=== PATIENT | male | born 1985 | race Caucasian/White ===

== ENCOUNTER → 2017-01-25 | Outpatient (REF) | payer BC ==
[2017-01-25 20:16] LABS: BASO % 0.5 % (0.0-1.0); EOS # 0.1 10^3/uL (0.0-0.50); EOS % 0.9 % (0.0-3.0); IMMATURE GRANULOCYTE % 0.4 % (0-0); LYMPH # 1.2 10^3/uL (1.5-6.5); LYMPH % 21.2 % (24.0-44.0); MEAN CORPUSCULAR HEMOGLOBIN 28.4 pg (27.0-33.0); MEAN CORPUSCULAR HGB CONC 33.9 g/dl (32.0-36.5); MEAN CORPUSCULAR VOLUME 83.7 fl (80.0-96.0); MONO # 0.4 10^3/uL (0.0-0.8); MONO % 8.1 % (0.0-5.0); NEUTROPHILS # 3.8 10^3/uL (1.8-7.7); NEUTROPHILS % 68.9 % (36.0-66.0); PLATELET COUNT, AUTOMATED 189 10^3/uL (150-450); RED CELL DISTRIBUTION WIDTH 12.8 % (11.5-14.5); WHITE BLOOD COUNT 5.5 10^3/uL (4.0-10.0)
[2017-01-25 21:00] LABS: ADD MORPHOLOGY? NO
== END ==
LOC: M LABNEURO 11:54
PROVIDERS: ATTEND Physician Assistant Medical
DX: G43.909 Migraine, unspecified, not intractable, without status migrainosus (principal); Z51.81 Encounter for therapeutic drug level monitoring

== ENCOUNTER → 2017-02-10 | Outpatient (CLI) | payer BC ==
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
== END ==
LOC: M PAIN 14:30
PROVIDERS: ATTEND Nurse Practitioner Family
DX: G89.29 Other chronic pain (principal); M54.2 Cervicalgia; M79.1 Myalgia; F17.210 Nicotine dependence, cigarettes, uncomplicated; G44.009 Cluster headache syndrome, unspecified, not intractable; Z88.8 Allergy status to other drugs, medicaments and biological substances; Z79.899 Other long term (current) drug therapy

== ENCOUNTER → 2017-02-21 | Outpatient (CLI) | payer BC ==
[~2017-02-21] MED LIST: BUPIVACAINE HCL 0.25% 10 ML VIAL As Ordered ONE; BUPIVACAINE HCL 0.25% 30 ML VIAL As Ordered ONE; TRIAMCINOLONE ACETONIDE SUSP 40 MG/ML VIAL (J3301) As Ordered ONE
--- NOTE | 2017-02-22 23:49 | ECWPNPC ---
PATIENT NAME: LEONILA TERAN : 1985 GENDER: MALE VISIT DATE: 02/21/2017 DISCHARGE DATE: 02/21/17 1441 VISIT LOCKED DATE TIME: PHYSICIAN: BERNABE GUZMAN PHYSICIAN PAGER NO: [phone] RESOURCE: BERNABE GUZMAN REASON FOR APPOINTMENT 1. TPI RIGHT NECK/RHOMBOID CURRENT MEDICATIONS TAKING DIVALPROEX SODIUM 500 MG TABLET EXTENDED RELEASE 24 HOUR 1 TABLET IN AM AND 2 TABLETS IN PM ORALLY TWICE A DAY, NOTES: 02-21-17 0700 TAKING CYCLOBENZAPRINE HCL 10 MG TABLET 1 TABLET NEEDED ORALLY THREE TIMES A DAY, NOTES: 02-20-172099 TAKING MENS ONE DAILY - TABLET 1 TAB ORALLY DAILY, NOTES: 02-20-172099 TAKING TYLENOL EXTRA STRENGTH 500 MG TABLET 2 TABLETS NEEDED ORALLY EVERY 6 HRS, NOTES: 02-19-17 0900 UNKNOWN ZITHROMAX 500 MG TABLET 2 TABLET ORALLY ONE TIME DOSE UNKNOWN DOXYCYCLINE HYCLATE 100 MG TABLET DELAYED RELEASE 1 TABLET ON AN EMPTY STOMACH ORALLY TWICE A DAY MEDICATION LIST REVIEWED AND RECONCILED WITH THE PATIENT PAST MEDICAL HISTORY CERVICAL SPONDYLOSIS BACK PAIN ONLY HAS 1 KIDNEY CLUSTER HEADACHES ALLERGIES IMITREX: INCRESED HEADACHE: ALLERGY SURGICAL HISTORY NEPHRECTOMY ON LEFT 1988 STERNUM SURGERY FOR FRACTURED STERNUM 2003 VITAL SIGNS WT 238.2 LBS, HT 73 IN, BMI 31.42 INDEX, BP 145/81 MM HG, HR 92 /MIN, RR 16 /MIN, TEMP 96.1 F, OXYGEN SAT % 98%, NA INITIALS TL 1400, REVIEWED BY: KG. ASSESSMENTS MYALGIA - M79.1 (PRIMARY) PROCEDURES PN TRIGGER POINT INJECTION WITH STEROIDS PRE PROCEDURE DIAGNOSIS 1. MYALGIA 2. PAIN AT RIGHT SHOULDER AREA POST PROCEDURE DIAGNOSIS 1. MYALGIA 2. PAIN AT RIGHT SHOULDER AREA PROCEDURE TRIGGER POINT INJECTION AT RIGHT SHOULDER AREA SURGEON DR. BERNABE GUZMAN AVIATION ORDNANCE OFFICER NONE ANESTHESIA LOCAL PRE PROCEDURE NOTE THE PATIENT HAS A HISTORY OF CHRONIC PAIN AT THE RIGHT SHOULDER AREA. I EVALUATE THE PATIENT AND REVIEWED THE CHART. THERE IS EVIDENCE OF BANDS OF TISSUE WITH RESTRICTION OF MOVEMENT AND PRESENCE OF TRIGGER POINT AT THE AFFECTED AREA. I WENT OVER THE RISKS, ALTERNATIVES, AND BENEFITS ASSOCIATED WITH THIS PROCEDURE. THE PATIENT WOULD LIKE TO PROCEED AND GIVE CONSENT TO PERFORMED THE PROCEDURE. THE PATIENT DENIES UNEXPLAINABLE WEIGHT LOSS, FEVER, CHILLS, OR NEW CHANGES IN URINARY OR BOWEL CONTROL DESCRIPTION OF PROCEDURE THE PATIENT WAS BROUGHT TO THE PROCEDURE ROOM AND PLACED IN THE SITTING POSITION. THE AREA WAS CLEANED WITH ALCOHOL. THE PROCEDURE WAS DONE USING ASEPTIC STERILE TECHNIQUE. I CHECKED LATERALITY AND THE LEVEL WHERE THE PROCEDURE WAS GOING TO BE PERFORMED WITH THE PATIENT AND THE SUPPORTING STAFF AT THE MOMENT OF THE TIME OUT IN THE PROCEDURE ROOM. USING A 25-GAUGE NEEDLE, TRIGGER POINTS WERE INJECTED AT THE RIGHT SHOULDER AREA WITH A TOTAL OF 40 ML OF BUPIVACAINE 0.25% AND KENALOG 40 MG. THERE WAS NO EVIDENCE OF BLOOD, PARESTHESIA OR CEREBROSPINAL FLUID DURING THE PROCEDURE. THE PATIENT WAS SENT TO THE RECOVERY ROOM. THE PATIENT WAS MOVING THE EXTREMITIES AND DOING WELL. THERE WAS NO COMPLICATION DURING THE PROCEDURE POST PROCEDURE NOTE THE PATIENT WILL BE SEEN IN A FOLLOW UP IN THE NEXT FEW WEEKS. INSTRUCTIONS WERE GIVEN, QUESTIONS WERE ANSWERED, AND THE PATIENT EXPRESSED UNDERSTANDING AND AGREES WITH THE PLAN. I, CHERISE HENNING, DOCUMENTED THE ABOVE INFORMATION ACTING A SCRIBE FOR DR. GUZMAN. I HAVE REVIEWED THE ABOVE DOCUMENT, WRITTEN BY CHERISE BORRERO AND I VERIFY THAT IT IS ACCURATE PROCEDURE CODES 31641 INJ TRIGGER POINT / [facility] DISPOSITION & COMMUNICATION FOLLOW UP 3 WEEKS ELECTRONICALLY SIGNED BY BERNABE GUZMAN MD ON 02/22/2017 AT 02:53 PM EDT DISCLAIMER : THIS IS A VISIT SUMMARY EXTRACTED FROM THE [employer] CHART. IT IS NOT A COPY OF THE [employer] PROGRESS NOTE. ZARINA
== END ==
LOC: M PAIN 14:00
PROVIDERS: ATTEND Anesthesiology
DX: G89.29 Other chronic pain (principal); M25.511 Pain in right shoulder; M79.1 Myalgia; Z88.8 Allergy status to other drugs, medicaments and biological substances; Z79.899 Other long term (current) drug therapy
CPT/HCPCS: 20552; J3301

== ENCOUNTER → 2017-03-29 | Outpatient (CLI) | payer BC ==
[2017-03-29 16:43] LABS: BASO % 0.4 % (0.0-1.0); EOS # 0.1 10^3/uL (0.0-0.50); IMMATURE GRANULOCYTE % 0.2 % (0-0); LYMPH # 1.7 10^3/uL (1.5-6.5); LYMPH % 33.3 % (24.0-44.0); MEAN CORPUSCULAR HEMOGLOBIN 28.5 pg (27.0-33.0); MEAN CORPUSCULAR HGB CONC 34.2 g/dl (32.0-36.5); MEAN CORPUSCULAR VOLUME 83.3 fl (80.0-96.0); MONO # 0.4 10^3/uL (0.0-0.8); MONO % 7.7 % (0.0-5.0); NEUTROPHILS # 2.8 10^3/uL (1.8-7.7); NEUTROPHILS % 57.4 % (36.0-66.0); PLATELET COUNT, AUTOMATED 202 10^3/uL (150-450); RED CELL DISTRIBUTION WIDTH 12.6 % (11.5-14.5)
[2017-03-29 17:42] LABS: ALBUMIN 4.1 GM/DL (3.2-5.2); ALBUMIN/GLOBULIN RATIO 1.21 (1.00-1.93); ALKALINE PHOSPHATASE 74 U/L (45-117); ALT/SGPT 44 U/L (12-78); ANION GAP 7 MEQ/L (8-16); AST/SGOT 22 U/L (7-37); BILIRUBIN,TOTAL 0.3 MG/DL (0.2-1.0); BLOOD UREA NITROGEN 14 MG/DL (7-18); CALCIUM LEVEL 9.1 MG/DL (8.5-10.1); CARBON DIOXIDE LEVEL 32 MEQ/L (21-32); CHLORIDE LEVEL 104 MEQ/L (98-107); CREATININE FOR GFR 1.11 MG/DL (0.70-1.30); GLOMERULAR FILTRATION RATE > 60.0 (>60); GLUCOSE, FASTING 77 MG/DL (70-105); POTASSIUM SERUM 4.7 MEQ/L (3.5-5.1); SODIUM LEVEL 143 MEQ/L (136-145); TOTAL PROTEIN 7.5 GM/DL (6.4-8.2)
== END ==
LOC: M WUC 15:22
PROVIDERS: ATTEND Family Medicine
DX: N18.9 Chronic kidney disease, unspecified (principal)

== ENCOUNTER → 2017-11-21 | Outpatient (CLI) | payer BC ==
[2017-11-21 13:08] LABS: CHOLESTEROL LEVEL 162 MG/DL (<200); CHOLESTEROL RISK RATIO 4.153 (<5); HDL CHOLESTEROL 39 MG/DL (>40); NON-HDL-C 123 MG/DL; TRIGLYCERIDES LEVEL 155 MG/DL (<150)
== END ==
LOC: M WUC 10:21
DX: R07.9 Chest pain, unspecified (principal)
CPT/HCPCS: 80061

== ENCOUNTER → 2018-03-02 | Outpatient (CLI) | payer BC ==
[2018-03-02 19:44] LABS: VALPROIC ACID (DEPAKOTE) 57.2 UG/ML (50.0-100.0)
== END ==
LOC: M WUC 15:53
DX: R00.2 Palpitations (principal); G43.909 Migraine, unspecified, not intractable, without status migrainosus; Z51.81 Encounter for therapeutic drug level monitoring; Z79.899 Other long term (current) drug therapy
CPT/HCPCS: 84443

== ENCOUNTER → 2018-08-12 | Outpatient (CLI) | payer BC ==
[2018-08-12 19:17] LABS: BASO % 0.6 % (0.0-1.0); EOS % 0.6 % (0.0-3.0); HEMATOCRIT 42.7 % (42.0-52.0); HEMOGLOBIN 14.4 g/dl (13.5-17.5); LYMPH # 1.8 10^3/uL (1.5-4.5); LYMPH % 33.1 % (24.0-44.0); MEAN CORPUSCULAR HEMOGLOBIN 27.9 pg (27.0-33.0); MEAN CORPUSCULAR HGB CONC 33.7 g/dl (32.0-36.5); MEAN CORPUSCULAR VOLUME 82.6 fl (80.0-96.0); MONO # 0.4 10^3/uL (0.0-0.8); MONO % 6.5 % (0.0-5.0); NEUTROPHILS # 3.2 10^3/uL (1.8-7.7); PLATELET COUNT, AUTOMATED 197 10^3/uL (150-450); RED BLOOD COUNT 5.17 10^6/uL (4.30-6.10); WHITE BLOOD COUNT 5.4 10^3/uL (4.0-10.0)
== END ==
LOC: M WUC 16:11
PROVIDERS: ATTEND Physician Assistant
DX: L04.0 Acute lymphadenitis of face, head and neck (principal)

== ENCOUNTER → 2019-05-24 | Outpatient (CLI) | payer BC | LOC: M WUC 11:37 | PROVIDERS: ATTEND Physician Assistant Medical | DX: G43.909 Migraine, unspecified, not intractable, without status migrainosus (principal) ==

== ENCOUNTER → 2019-12-18 | Outpatient (CLI) | payer BC ==
--- NOTE | 2019-12-18 10:44 | REPVR ---
PROCEDURE INFORMATION: Exam: CT Maxillofacial Without Contrast, Sinus Exam date and time: 12/18/2019 10:30 AM Age: 34 years old Clinical indication: Pain; Other: Sinus; Additional info: J32.0 chronic maxillary sinusitis TECHNIQUE: Imaging protocol: CT Maxillofacial without contrast. Focus on the sinuses. Radiation optimization: All CT scans at this facility use at least one of these dose optimization techniques: automated exposure control; mA and/or kV adjustment per patient size (includes targeted exams where dose is matched to clinical indication); or iterative reconstruction. COMPARISON: No relevant prior studies available. FINDINGS: Frontal sinuses: Normal. No air-fluid levels. Ethmoid air cells: There is minor chronic disease of a right ethmoid air cell posteriorly. The remainder are clear. Sphenoid sinuses: Normal. No air-fluid levels. Maxillary sinuses: Minor chronic mucosal disease involves the bilateral maxillary sinuses. There has been bilateral maxillary antrostomy. The defects are patent. Orbits: The globes appear grossly intact, and no definite intraorbital hematoma is identified. Mastoid air cells: The mastoid air cells are clear. Nasal cavity/Septum: The ostiomeatal units are patent bilaterally. Brain: The visualized intracranial structures appear grossly unremarkable. Soft tissues: Unremarkable. Bones/joints: The temporomandibular joints are normally aligned. No acute fracture is identified. IMPRESSION: Postoperative maxillary sinuses with minor chronic paranasal sinus disease as described. Electronically signed by: Tee Trevino On 12/18/2019 10:44:59 AM
== END ==
LOC: M RAD 10:12
PROVIDERS: ATTEND Otolaryngology
DX: J32.0 Chronic maxillary sinusitis (principal)

== ENCOUNTER → 2020-06-16 | Outpatient (CLI) | payer BC ==
[2020-06-16 17:20] LABS: BASO % 0.5 % (0.0-1.0); EOS % 0.5 % (0.0-3.0); HEMATOCRIT 45.5 % (42.0-52.0); HEMOGLOBIN 15.2 g/dl (13.5-17.5); LYMPH # 1.6 10^3/uL (1.5-5.0); LYMPH % 23.9 % (24.0-44.0); MEAN CORPUSCULAR HEMOGLOBIN 28.1 pg (27.0-33.0); MEAN CORPUSCULAR HGB CONC 33.4 g/dl (32.0-36.5); MEAN CORPUSCULAR VOLUME 84.1 fl (80.0-96.0); MONO # 0.4 10^3/uL (0.0-0.8); NEUTROPHILS # 4.5 10^3/uL (1.5-8.5); NEUTROPHILS % 68.8 % (36.0-66.0); PLATELET COUNT, AUTOMATED 207 10^3/uL (150-450); RED BLOOD COUNT 5.41 10^6/uL (4.30-6.10); WHITE BLOOD COUNT 6.5 10^3/uL (4.0-10.0)
[2020-06-16 17:48] LABS: BLOOD UREA NITROGEN 16 MG/DL (7-18); CREATININE FOR GFR 1.42 MG/DL (0.70-1.30); GLOMERULAR FILTRATION RATE > 60.0 (>60); GLUCOSE, FASTING 86 MG/DL (70-100); POTASSIUM SERUM 4.1 MEQ/L (3.5-5.1); SODIUM LEVEL 138 MEQ/L (136-145)
[2020-06-16 17:49] LABS: ALBUMIN 4.5 GM/DL (3.2-5.2); ALT/SGPT 55 U/L (12-78); BILIRUBIN,TOTAL 0.3 MG/DL (0.2-1.0); CALCIUM LEVEL 9.6 MG/DL (8.5-10.1); CARBON DIOXIDE LEVEL 30 MEQ/L (21-32); CHLORIDE LEVEL 102 MEQ/L (98-107); LIPASE 53 U/L (73-393); TOTAL PROTEIN 7.7 GM/DL (6.4-8.2)
== END ==
LOC: M WUC 14:56
PROVIDERS: ATTEND Physician Assistant
DX: R10.10 Upper abdominal pain, unspecified (principal)

== ENCOUNTER → 2021-03-02 | Outpatient (CLI) | payer BC ==
[~2021-03-02] MED LIST changes: +ACET32TAB PO; +AZEL1SPR3 NARES; -BUPIVACAINE HCL 0.25% 10 ML VIAL As Ordered ONE; -BUPIVACAINE HCL 0.25% 30 ML VIAL As Ordered ONE; +OMEP1CAP73 PO; -TRIAMCINOLONE ACETONIDE SUSP 40 MG/ML VIAL (J3301) As Ordered ONE; +VERA40TA PO; +VITMTA PO
== END ==
LOC: M LABSMTC 09:53
PROVIDERS: ATTEND Anesthesiology
DX: Z01.812 Encounter for preprocedural laboratory examination (principal); Z20.822 Contact with and (suspected) exposure to COVID-19

== ENCOUNTER 2021-03-06 08:50 | Day surgery (SDC) | payer BC ==
[~2021-03-06] VITALS: Ht 190.5 cm; Wt 110.7 kg
[~2021-03-06 08:50] MED LIST changes: +NS 1,000 ML IV ONE
--- OUTSIDE RECORDS SUMMARY | 2021-03-06 08:54 | CCD | Continuity of Care Document ---
Author Author Abel CLEMONS P.A.-C. Organization Unknown Address [address] [place] [address] Phone [phone] Care Team Providers Care Council Member Name Role Phone Alvaro Light M.D. AUTM [phone] Problems Description No Information Available Social History Type Date Description Comments Sex Unknown ETOH Use Occasionally consumes alcohol Tobacco Use Start: Unknown Patient is a current smoker, smo kes every day Allergies, Adverse Reactions, Alerts Active Allergies Criticality Reaction | Severity Comments Date Imitrex Unable to assess criticality made head fe el worse 01/10/2015 Inactive Allergies NKDA Unable to assess criticality 11/28/2013 Medications Active Medications SIG Qnty Indications Ordering Provide r Date Verapamil HCL 40mg Tablets 1/2 tab po daily 45tabs Ofelia Busby M.D. 08/01/2019 Immunizations Description No Information Available Vital Signs Date Vital Result Comment 11/13/2019 5:13am BP Systolic 110 mmHg BP Diastolic 78 mmHg Heart Rate 76 /min Respiratory Rate 16 /min 05/15/2019 6:22am BP Systolic 110 mmHg BP Diastolic 80 mmHg Heart Rate 76 /min Respiratory Rate 16 /min Results Description No Information Available Procedures Date Code Description Status 06/18/2020 27017 Office/Outpatient Established Lo w MDM 20-29 Min Completed Medical Devices Description No Information Available Encounters Type Date Location Provider Dx Diagnosis Office Visit 06/18/2020 8:30a Main office - [place] Susannah brown P.A.-C. G43.009 Migraine w/o aura, not intractable, w/o status migrainosus M54.81 Occipital neuralgia M54.2 Cervicalgia M54.12 Radiculopathy, cervical martina on M47.892 Other spondylosis, cervical region Assessments Date Code Description Provider 12/15/2020 M54.2 Cervicalgia Susannah Clemons, P.A.-C. 12/15/2020 M47.892 Other spondylosis, cervical martina on Susannah Clemons, P.A.-C. 12/15/2020 M54.12 Radiculopathy, cervical region L del Clemons, P.A.-C. 12/15/2020 M54.81 Occipital neuralgia Susannah brown, P.A.-C. 12/15/2020 G43.009 Migraine without aur a, not intractable, without status migrainosus Susannah Clemons, P.A.-C. 06/18/2020 G43.009 Migraine without aur a, not intractable, without status migrainosus Susannah Clemons, P.A.-C. 06/18/2020 M54.81 Occipital neuralgia Susannah brown, P.A.-C. 06/18/2020 M54.2 Cervicalgia Susannah Clemons, P.A.-C. 06/18/2020 M54.12 Radiculopathy, cervical region L del Clemons, P.A.-C. 06/18/2020 M47.892 Other spondylosis, cervical martina on Susannah Clemons, P.A.-C. Plan of Treatment No Information Available Functional Status Description No Information Available Mental Status Description No Information Available Referrals Description No Information Available"
--- OUTSIDE RECORDS SUMMARY | 2021-03-06 08:54 | CCD | Continuity of Care Document ---
Author Author Abel CLEMONS P.A.-C. Organization Unknown Address [facility] [place] [address] Phone [phone] Care Team Providers Care Instructor Dancing Name Role Phone Alvaro Light M.D. AUTM [phone] Problems Description No Information Available Social History [...] Available Vital Signs Date Vital Result Comment 12/15/2020 7:03am BP Systolic 124 mmHg BP Diastolic 80 mmHg Heart Rate 76 /min Respiratory Rate 16 /min 11/13/2019 5:13am BP Systolic 110 mmHg BP Diastolic 78 mmHg Heart Rate 76 /min Respiratory Rate 16 /min Results Description No Information Available Procedures Date Code Description Status 12/15/2020 19627 Office/Outpatient Established Mo d MDM 30-39 Min Completed Medical Devices Description No Information Available Encounters Type Date Location Provider Dx Diagnosis Office Visit 12/15/2020 10:30a Main office - [place] Susannah brown P.A.-C. M54.2 Cervicalgia M47.892 Other spondylosis, cervical region M54.12 Radiculopathy, cervical martina on M54.81 Occipital neuralgia G43.009 Migraine w/o aura, not intra ctable, w/o status migrainosus M62.838 Other muscle spasm Assessments Date Code Description Provider 12/15/2020 M54.2 Cervicalgia Mary BlackCKatheryn 12/15/2020 M47.892 Other spondylosis, cervical martina on Duy Black.AKatheryn-CKatheryn 12/15/2020 M54.12 Radiculopathy, cervical region L del Clemons P.A.-CKatheryn 12/15/2020 M54.81 Occipital neuralgia Susannah brown P.A.-CKatheryn 12/15/2020 G43.009 Migraine without aur a, not intractable, without status migrainosus Duy Black.A.-CKatheryn 12/15/2020 M62.838 Other muscle spasm Susannah cardozo P.A.-C. Plan of Treatment Future Appointment(s):* 06/17/2021 8:00 am - Romel Black-CKatheryn at Main office [facility] 12/15/2020 - Susannah Clemons P.A.-C.* M54.2 Cervicalgia* Comments:* Stable. * M47.892 Other spondylosis, cervical region * M54.12 Radiculopathy, cervical region * M54.81 Occipital neuralgia* Comments:* Improved. * G43.009 Migraine without aura, not intractable, without status migrainosus* Comments:* Controlled. * M62.838 Other muscle spasm* Comments:* He may consider massage or use of a massage cane for right thoracic spasms. * Follow up:* 6 months. Functional Status Description No Information Available Mental Status Description No Information Available Referrals Description No Information Available"
--- OUTSIDE RECORDS SUMMARY | 2021-03-06 08:54 | CCD ---
Author Author [facility] Organization [facility] Address Unknown Phone Unavailable Care Team Providers Care Drug Abuse Resistance Education Officer Name Role Phone Kelsey Salinas MD Unavailable Unavailable Kelsey Salinas MD Unavailable Unavailable Kelsey Salinas MD Unavailable Unavailable Kelsey Salinas MD Unavailable Unavailable Kelsey Salinas MD Unavailable Unavailable Kelsey Salinas MD Unavailable Unavailable Kelsey Salinas MD Unavailable Unavailable Kelsey Salinas MD Unavailable Unavailable Kelsey Salinas MD Unavailable Unavailable Kelsey Salinas MD Unavailable Unavailable Kelsey Salinas MD Unavailable Unavailable Kelsey Salinas MD Unavailable Unavailable Kelsey Salinas MD Unavailable Unavailable Kelsey Salinas MD Unavailable Unavailable Kelsey Salinas MD Unavailable Unavailable Kelsey Salinas MD Unavailable Unavailable Kelsey Salinas MD Unavailable Unavailable Kelsey Salinas MD Unavailable Unavailable Kelsey Salinas MD Unavailable Unavailable Kelsey Salinas MD Unavailable Unavailable Kelsey Salinas MD Unavailable Unavailable Kelsey Salinas MD Unavailable Unavailable Kelsey Salinas MD Unavailable Unavailable Kelsey Salinas MD Unavailable Unavailable Kelsey Salinas MD Unavailable Unavailable Kelsey Salinas MD Unavailable Unavailable Kelsey Salinas MD Unavailable Unavailable Rita, S Danny EASLEY Unavailable Unavailable Rita, S Danny EASLEY Unavailable Unavailable Rita, S Danny MD Unavailable Unavailable Rita, S Danny MD Unavailable Unavailable Rita, S Danny MD Unavailable Unavailable Rita, S Danny MD Unavailable Unavailable Rita, S Danny MD Unavailable Unavailable Rita, S Danny MD Unavailable Unavailable Rita, S Danny MD Unavailable Unavailable Rita, S Danny MD Unavailable Unavailable Rita, S Danny MD Unavailable Unavailable Rita, S Danny MD Unavailable Unavailable Rita, S Danny MD Unavailable Unavailable Rita, S Danny MD Unavailable Unavailable Rita, S Danny MD Unavailable Unavailable Rita, S Danny MD Unavailable Unavailable Rita, S Danny MD Unavailable Unavailable Rita, S Danny MD Unavailable Unavailable Rita, S Danny MD Unavailable Unavailable Rita, S Danny MD Unavailable Unavailable Rita, S Danny MD Unavailable Unavailable Rita, S Danny MD Unavailable Unavailable Rita, S Danny MD Unavailable Unavailable LETTIERE, A SANDRA PA Unavailable Unavailable LETTIERE, A SANDRA PA Unavailable Unavailable LETTIERE, A SANDRA PA Unavailable Unavailable LETTIERE, A SANDRA PA Unavailable Unavailable LETTIERE, A SANDRA PA Unavailable Unavailable LETTIERE, A SANDRA PA Unavailable Unavailable LETTIERE, A SANDRA PA Unavailable Unavailable LETTIERE, A SANDRA PA Unavailable Unavailable LETTIERE, A SANDRA PA Unavailable Unavailable LETTIERE, A SANDRA PA Unavailable Unavailable LETTIERE, A SANDRA PA Unavailable Unavailable LETTIERE, A SANDRA PA Unavailable Unavailable LETTIERE, A SANDRA PA Unavailable Unavailable LETTIERE, A SANDRA PA Unavailable Unavailable LETTIERE, A SANDRA PA Unavailable Unavailable LETTIERE, A SANDRA PA Unavailable Unavailable LETTIERE, A SANDRA PA Unavailable Unavailable LETTIERE, A SANDRA PA Unavailable Unavailable LETTIERE, A SANDRA PA Unavailable Unavailable LETTIERE, A SANDRA PA Unavailable Unavailable LETTIERE, A SANDRA PA Unavailable Unavailable LETTIERE, A SANDRA PA Unavailable Unavailable LETTIERE, A SANDRA PA Unavailable Unavailable LETTIERE, A SANDRA PA Unavailable Unavailable LETTIERE, A SANDRA PA Unavailable Unavailable LETTIERE, A SANDRA PA Unavailable Unavailable LETTIERE, A SANDRA PA Unavailable Unavailable LETTIERE, A SANDRA PA Unavailable Unavailable LETTIERE, A SANDRA PA Unavailable Unavailable LETTIERE, A SANDRA PA Unavailable Unavailable LETTIERE, A SANDRA PA Unavailable Unavailable DIANNE TREVIÑO MD Unavailable Unavailable CHROSTOWSKI, DIANNE MD Unavailable Unavailable CHROSTOWSKIMARCO ANTONIODIANNE MD Unavailable Unavailable CHROSTOWSKI DIANNE MD Unavailable Unavailable CHROSTOWSKIMARCO ANTONIODIANNE MD Unavailable Unavailable CHROSTOWSKIMARCO ANTONIODIANNE MD Unavailable Unavailable CHROSTOWSKIMARCO ANTONIODIANNE MD Unavailable Unavailable CHROSTOWSKIMARCO ANTONIODIANNE MD Unavailable Unavailable CHROSTOWSKIMARCO ANTONIODIANNE MD Unavailable Unavailable CHROSTOWSKI DIANNE MD Unavailable Unavailable CHROSTOWSKIMARCO ANTONIODIANNE MD Unavailable Unavailable CHROSTOWSKIMARCO ANTONIODIANNE MD Unavailable Unavailable CHROSTOWSKI DIANNE MD Unavailable Unavailable CHROSTOWSKI DIANNE MD Unavailable Unavailable CHROSTOWSKI DIANNE MD Unavailable Unavailable CHROSTOWSKI DIANNE MD Unavailable Unavailable CHROSTOWSKI DIANNE MD Unavailable Unavailable CHROSTOWSKIMARCO ANTONIODIANNE MD Unavailable Unavailable CHROSTOWSKIMARCO ANTONIODIANNE MD Unavailable Unavailable CHROSTOWSKIMARCO ANTONIODIANNE MD Unavailable Unavailable CHROSTOWSKIMARCO ANTONIODIANNE MD Unavailable Unavailable CHROSTOWSKIMARCO ANTONIODIANNE MD Unavailable Unavailable CHROSTOWSKIMARCO ANTONIODIANNE MD Unavailable Unavailable CHROSTOWSKIMARCO ANTONIODIANNE MD Unavailable Unavailable CHROSTOWSKIMARCO ANTONIODIANNE MD Unavailable Unavailable CHROSTOWSKIMARCO ANTONIODIANNE MD Unavailable Unavailable CHROSTOWSKI DIANNE MD Unavailable Unavailable CHROSTOWSKIMARCO ANTONIODIANNE MD Unavailable Unavailable CHROSTOWSKIMARCO ANTONIODIANNE MD Unavailable Unavailable CHROSTOWSKIMARCO ANTONIODIANNE MD Unavailable Unavailable CHROSTOWSKIMARCO ANTONIODIANNE MD Unavailable Unavailable CHROSTOWSKIMARCO ANTONIODIANNE MD Unavailable Unavailable CHROSTOWSKIMARCO ANTONIODIANNE MD Unavailable Unavailable CHROSTOWSKIMARCO ANTONIODIANNE MD Unavailable Unavailable CHROSTOWSKIMARCO ANTONIODIANNE MD Unavailable Unavailable CHROSTOWSKIMARCO ANTONIODIANNE MD Unavailable Unavailable CHROSTOWSKIMARCO ANTONIODIANNE MD Unavailable Unavailable CHROSTOWSKIMARCO ANTONIODIANNE MD Unavailable Unavailable CHROSTOWSKIMARCO ANTONIODIANNE MD Unavailable Unavailable Trickey, J Susannah PA Unavailable Unavailable Trickey, J Susannah PA Unavailable Unavailable Trickey, J Susannah PA Unavailable Unavailable Trickey, J Susannah PA Unavailable Unavailable Trickey, J Susannah PA Unavailable Unavailable Trickey, J Susannah PA Unavailable Unavailable Trickey, J Susannah PA Unavailable Unavailable Trickey, J Susannah PA Unavailable Unavailable Trickey, J Susannah PA Unavailable Unavailable Trickey, J Susannah PA Unavailable Unavailable Trickey, J Susannah PA Unavailable Unavailable Trickey, J Susannah PA Unavailable Unavailable Trickey, J Susannah PA Unavailable Unavailable Trickey, J Susannah PA Unavailable Unavailable Trickey, J Susannah PA Unavailable Unavailable Trickey, J Susannah PA Unavailable Unavailable Trickey, J Susannah PA Unavailable Unavailable Trickey, J Susannah PA Unavailable Unavailable Trickey, J Susannah PA Unavailable Unavailable Trickey, J Susannah PA Unavailable Unavailable Trickey, J Susannah PA Unavailable Unavailable Trickey, J Susannah PA Unavailable Unavailable Trickey, J Susannah PA Unavailable Unavailable Trickey, J Susannah PA Unavailable Unavailable Trickey, J Susannah PA Unavailable Unavailable Trickey, J Susannah PA Unavailable Unavailable Trickey, J Susannah PA Unavailable Unavailable Trickey, J Susannah PA Unavailable Unavailable Trickey, J Susannah PA Unavailable Unavailable Trickey, J Susannah PA Unavailable Unavailable Trickey, J Susannah PA Unavailable Unavailable Trickey, J Susannah PA Unavailable Unavailable Trickey, J Susannah PA Unavailable Unavailable Trickey, J Susannah PA Unavailable Unavailable Trickey, J Susannah PA Unavailable Unavailable Trickey, J Susannah PA Unavailable Unavailable Trickey, J Susannah PA Unavailable Unavailable Trickey, J Susannah PA Unavailable Unavailable Trickey, J Susannah PA Unavailable Unavailable Trickey, J Susannah PA Unavailable Unavailable Trickey, J Susannah PA Unavailable Unavailable Trickey, J Susannah PA Unavailable Unavailable Trickey, J Susannah PA Unavailable Unavailable Trickey, J Susannah PA Unavailable Unavailable Trickey, J Susannah PA Unavailable Unavailable Trickey, J Susannah PA Unavailable Unavailable Trickey, J Susannah PA Unavailable Unavailable Trickey, J Susannah PA Unavailable Unavailable Trickey, J Susannah PA Unavailable Unavailable Re-disclosure Warning The records that you are about to access may contain information from federally-assisted alcohol or drug abuse programs. If such information is present, then the following federally mandated warning applies: This information has been disclosed to you from records protected by federal confidentiality rules (42 CFR part 2). The federal rules prohibit you from making any further disclosure of this information unless further disclosure is expressly permitted by the written consent of the person to whom it pertains or as otherwise permitted by 42 CFR part 2. A general authorization for the release of medical or other information is NOT sufficient for this purpose. The Federal rules restrict any use of the information to criminally investigate or prosecute any alcohol or drug abuse patient.The records that you are about to access may contain highly sensitive health information, the redisclosure of which is protected by Article 27-F of the [facility] Public Health law. If you continue you may have access to information: Regarding HIV / AIDS; Provided by facilities licensed or operated by the [facility] Office of Mental Health; or Provided by the [facility] Office for People With Developmental Disabilities. If such information is present, then the following [facility] mandated warning applies: This information has been disclosed to you from confidential records which are protected by state law. State law prohibits you from making any further disclosure of this information without the specific written consent of the person to whom it pertains, or as otherwise permitted by law. Any unauthorized further disclosure in violation of state law may result in a fine or senior care sentence or both. A general authorization for the release of medical or other information is NOT sufficient authorization for further disc losure. Family History Family Member Name Family Member Gender Family Member Status Date o f Status Description Data Source(s) Unknown Unknown Problem [facility] pgm Encounters Encounter Providers Location Date Indications Data Source(s ) Outpatient Attender: Danny Salinas MD Main Office 01/15/2021 11:30:00 AM EDT [facility] ([facility]) Outpatient Attender: Susannah SAMAYOA Main office - [facility] 12/15/2020 10:30:00 AM EDT [facility] ([facility]) Outpatient Attender: SANDRA Philip chuy 09/20/2020 08:20:00 AM EDT [facility] ([facility] Outpatient Attender: Susannah SAMAYOA Main office - [facility] 06/18/2020 07:30:00 AM EST [facility] ([facility]) Outpatient Attender: DIANNE TREVIÑO MD Main Office 01/10/2020 08:30:00 AM EDT [facility] ([facility]) Immunizations Vaccine Date Status Description Data Source(s) COVID-19 VACCINE Pfizer 10/12/2020 12:00:00 AM EDT completed [facility] Vaccine Series Complete: YESThis Data wa s Submitted to [facility] Via [employer]. COVID-19 VACCINE Pfizer 09/21/2020 12:00:00 AM EDT completed [facility] Vaccine Series Complete: NOThis Data was Submitted to [facility] Via [employer]. Medications Medication Brand Name Start Date Product Form Dose Route Admi nistrative Instructions Pharmacy Instructions Status Indications Reaction Description Data Source(s) 40 mg 02/13/2021 12:00:00 AM EDT tablet 45 TAKE 1/2 TABLET BY MOUTH DAILY MAXIMUM DAILY DOSE = 1/2 TABLET TAKE 1/2 TABLET BY MOUTH DAILY MAXIMUM D AILY DOSE = 1/2 TABLET SOLD: 02/14/2021 [facility] 50 mcg/actuation 11/21/2020 12:00:00 AM EDT spray,suspension 16 SPRAY TWO SPRAYS IN ONE NOSTRIL EVERY DAY SPRAY TWO SPRAYS IN ONE NOSTRIL EVERY DAY SOLD: 11/23/2020 [facility] Azelastine hydrochloride 0.206 MG/ACTUAT Metered Dose Nasal [place] 205.5 mcg (0.15 %) AZELASTINE HCL 11/21/2020 12:00:00 AM EDT spray,non-aerosol 90 SPRAY TWO SPRAYS IN EACH NOSTRIL EVERY MORNING SPRAY TWO SPRAYS IN EACH NOSTRIL EVERY MORNING SOLD: 11/23/2020 [facility] 20 mg 11/18/2020 12:00:00 AM EDT capsule,delayed release (DR/EC) 30 TAKE ONE CAPSULE BY MOUTH ONCE DAILY TAKE ONE CAPSULE BY MOUTH ONCE DAILY SOLD: 01/22/2021 [facility] 20 mg 11/18/2020 12:00:00 AM EDT capsule,delayed release (DR/EC) 30 TAKE ONE CAPSULE BY MOUTH ONCE DAILY TAKE ONE CAPSULE BY MOUTH ONCE DAILY SOLD: 11/19/2020 [facility] 20 mg 11/18/2020 12:00:00 AM EDT capsule,delayed release (DR/EC) 30 TAKE ONE CAPSULE BY MOUTH ONCE DAILY TAKE ONE CAPSULE BY MOUTH ONCE DAILY SOLD: 12/22/2020 [facility] 20 mg 11/18/2020 12:00:00 AM EDT capsule,delayed release (DR/EC) 30 TAKE ONE CAPSULE BY MOUTH ONCE DAILY TAKE ONE CAPSULE BY MOUTH ONCE DAILY SOLD: 02/21/2021 [facility] 40 mg 09/20/2020 12:00:00 AM EDT capsule,delayed release (DR/EC) 30 TAKE ONE CAPSULE BY MOUTH EVERY DAY FOR 4 WEEKS TAKE ONE CAPSULE BY MOUTH EVERY DAY FOR 4 WEEKS SOLD: 09/20/2020 [facility] 40 mg 09/20/2020 12:00:00 AM EDT capsule,delayed release (DR/EC) 30 TAKE ONE CAPSULE BY MOUTH EVERY DAY FOR 4 WEEKS TAKE ONE CAPSULE BY MOUTH EVERY DAY FOR 4 WEEKS SOLD: 10/17/2020 [facility] Omeprazole 40 MG Delayed Release Oral Capsule Omeprazole 09/20/2020 12:00:00 AM EDT ORAL active [facility] ([facility]) 40 mg 06/18/2020 12:00:00 AM EST tablet 45 TAKE 1/2 TABLET BY MOUTH DAILY MAXIMUM DAILY DOSE = 1/2 TABLET TAKE 1/2 TABLET BY MOUTH DAILY MAXIMUM D AILY DOSE = 1/2 TABLET SOLD: 06/19/2020 [facility] 40 mg 06/18/2020 12:00:00 AM EST tablet 45 TAKE 1/2 TABLET BY MOUTH DAILY MAXIMUM DAILY DOSE = 1/2 TABLET TAKE 1/2 TABLET BY MOUTH DAILY MAXIMUM D AILY DOSE = 1/2 TABLET SOLD: 10/17/2020 [facility] 40 mg 06/17/2020 12:00:00 AM EST capsule,delayed release (DR/EC) 30 TAKE ONE CAPSULE BY MOUTH EVERY DAY FOR 6 WEEKS TAKE ONE CAPSULE BY MOUTH EVERY DAY FOR 6 WEEKS SOLD: 06/19/2020 [facility] 40 mg 06/17/2020 12:00:00 AM EST capsule,delayed release (DR/EC) 30 TAKE ONE CAPSULE BY MOUTH EVERY DAY FOR 6 WEEKS TAKE ONE CAPSULE BY MOUTH EVERY DAY FOR 6 WEEKS SOLD: 08/04/2020 [facility] Omeprazole 40 MG Delayed Release Oral Capsule Omeprazole 06/16/2020 12:00:00 AM EST ORAL completed [facility] ([facility]) 0.15 % (205.5 mcg) 01/29/2020 12:00:00 AM EDT spray,non-aero reymundo 30 SPRAY TWO SPRAYS IN EACH NOSTRIL EVERY MORNING SPRAY TWO SPRAYS IN EACH NOSTRIL EVERY MORNING SOLD: 01/29/2020 [facility] 40 mg 11/21/2019 12:00:00 AM EDT tablet 45 TAKE 1/2 TABLET BY MOUTH ONCE DAILY MAXIMUM DAILY DOSE = 1/2 TABLETS TAKE 1/2 TABLET BY MOUTH ONCE DAILY MAXIMUM DAILY DOSE = 1/2 TABLETS SOLD: 03/22/2020 [facility] 50 mcg/actuation 11/12/2019 12:00:00 AM EDT spray,suspension 48 SPRAY TWO SPRAYS IN EACH NOSTRIL EVERY DAY SPRAY TWO SPRAYS IN EACH NOSTRIL EVERY DAY SOLD: 07/30/2020 [facility] 50 mcg/actuation 11/12/2019 12:00:00 AM EDT spray,suspension 48 SPRAY TWO SPRAYS IN EACH NOSTRIL EVERY DAY SPRAY TWO SPRAYS IN EACH NOSTRIL EVERY DAY SOLD: 03/22/2020 [facility] Insurance Providers Payer name Policy type / Coverage type Policy ID Covered republican ID Covered republican's relationship to caal Policy Caal Plan Information [employer] [id number] Self [id number] [employer] [id number] Self [id number] [employer] [id number] Self [place]BS [place] 302/307 [id number] SP [id number] [place] 302/307 [id number] SP [id number] [employer] BCBS B [id number] S [id number] BC/[place] Of [place] Commercial [id number] Self [id number] BC/[place] Of [place] Commercial [id number] Self [id number] [employer] BCBS B [id number] S VYS [id number] BC/BS Of [place] Commercial [id number] Self BC/BS Of [place] Commercial [id number] Self BCBS OF [place] 306/806 [id number] BCBS [place] [id number] FA [id number] [place]BS [place] PPO 302/307 [id number] SP [id number] [employer] BCBS B [id number] S [id number] [id number] [place] PPO 302/307 [id number] SP [id number] BC/BS Of [facility] Commercial [id number] Self [id number] BC/BS Of [facility] Commercial [id number] Self [id number] Problems, Conditions, and Diagnoses Code Display Name Description Problem Type Effective Dates Data Source(s) 851520532 Screening for malignant neoplasm of colo n Screening for malignant neoplasm of colon Problem 01/15/2021 12:00:00 AM EDT [facility] ([facility]) [id number] Allergic rhinitis due to house dust mite Allergic rhinitis due to house dust mite Problem 01/10/2020 12:00:00 AM EDT [facility] ([facility]) Note: 4+ reaction to dust mites on scrat ch test. 4+ reaction to dust mites on scratch test. [id number] Allergic rhinitis due to pollen Allergic rhiniti s due to pollen Problem 01/10/2020 12:00:00 AM EDT [facility] ([facility]) Note: 4++ positive reaction to grass deyanira sarika, birch pollen, plantain weed pollen with 4+ positive reaction to various other tree pollen and 3+ to pigweed and hui's quarter on scratch test. 4++ positive reaction to tree mix #2 (shawna, cottonwood, elm, pine) and 4+ to ragweed on intradermal test. Surgeries/Procedures Procedure Description Date Indications Data Source(s) OFFICE OUTPATIENT NEW 30 MINUTES 01/15/2021 12:00:00 A M EDT [facility] ([facility]) OFFICE OUTPATIENT VISIT 25 MINUTES 12/15/2020 12:00:00 AM EDT [facility] ([facility] ) OFFICE OUTPATIENT VISIT 15 MINUTES 06/18/2020 12:00:00 AM EST [facility] ([facility]) PERCUTANEOUS TESTS W/ALLERGENIC EXTRACTS 01/10/2020 12 :00:00 AM EDT [facility] ([facility]) INTRACUTANEOUS TESTS W/ALLERGENIC EXTRACTS 01/10/2020 12:00:00 AM EDT [facility] ([facility]) Results ID Date Data Source [id number] 06/16/2020 02:56:00 PM EST [facility] ([facility]) Name Value Range Interpretation Code Description Data Mitali rce(s) Supporting Document(s) Lipoprotein lipase [Enzymatic activity/volume] in Serum or Plasm a 53 U/L 73-393 [facility] ([facility]) ID Date Data Source [id number] 06/16/2020 02:56:00 PM EST [facility] ([facility]) Name Value Range Interpretation Code Description Data Mitali rce(s) Supporting Document(s) Glucose, Fasting 86 mg/dL 70-100 [facility] ([facility]) Creatinine For GFR 1.42 mg/dL 0.70-1.30 [facility] ([facility]) Blood Urea Nitrogen 16 mg/dL 7-18 [facility] ([facility]) Potassium Serum 4.1 meq/L 3.5-5.1 [facility] ([facility]) Sodium Level 138 meq/L 136-145 [facility] ([facility]) Glomerular Filtration Rate Laboratory test result [facility] ([facility]) <content>Units are mL/min/1.73 m2</content>
<content></content>
<content>Chronic Kidney Disease Staging per NKF:</content>
<content></content>
<content>Stage I & II GFR >=60 Normal to Mildly Decreased</content>
<content>Stage III GFR 30-59 Moderately Decreased</content>
<content>Stage IV GFR 15-29 Severely Decreased</content>
<content>Stage V GFR <15 Very Little GFR Left</content>
<content>ESRD GFR <15 on [employer]</content>
<content></content> Carbon Dioxide Level 30 meq/L 21-32 [facility] ([facility]) Anion Gap 6 meq/L 8-16 [facility] ([facility]) Chloride Level 102 meq/L 98-107 [facility] ([facility]) Calcium Level 9.6 mg/dL 8.5-10.1 MED[facility] ([facility]) Ast/Sgot 23 U/L 7-37 [facility] ([facility]) Alkaline Phosphatase 92 U/L 45-117 [facility] ( [facility]) Alt/SGPT 55 U/L 12-78 [facility] ([facility]) Bilirubin,Total 0.3 mg/dL 0.2-1.0 [facility] ([facility]) Total Protein 7.7 GM/DL 6.4-8.2 [facility] ([facility]) Albumin 4.5 GM/DL 3.2-5.2 [facility] ([facility]) Albumin/Globulin Ratio 1.4 [facility] ([facility]) ID Date Data Source [id number] 06/16/2020 02:56:00 PM EST MED[facility] ([facility]) Name Value Range Interpretation Code Description Data Mitali rce(s) Supporting Document(s) White Blood Count 6.5 10 4.0-10.0 [facility] Hemoglobin 15.2 g/dL 13.5-17.5 [facility] ([facility]) Red Blood Count 5.41 10 4.30-6.10 [facility] ([facility]) Mean Corpuscular Volume 84.1 fl 80.0-96.0 M EDENT ([facility]) Hematocrit 45.5 % 42.0-52.0 [facility] ([facility]) Mean Corpuscular HGB Conc 33.4 g/dL 32.0-36.5 [facility] ([facility]) Red Cell Distribution Width 12.9 % 11.5-14.5 [facility] ([facility]) Mean Corpuscular Hemoglobin 28.1 pg 27.0-33.0 [facility] ([facility]) Lymph % 23.9 % 24.0-44.0 [facility] ([facility]) Platelet Count, Automated 207 10 150-450 [facility] ([facility]) Neutrophils % 68.8 % 36.0-66.0 MED[facility] ([facility]) Isabella % 6.0 % 2.0-8.0 [facility] ([facility]) Baso % 0.5 % 0.0-1.0 [facility] ([facility]) Eos % 0.5 % 0.0-3.0 [facility] ([facility]) Nucleated Red Blood Cell % 0.0 % 0-0 MED ENT ([facility]) Neutrophils # 4.5 10 1.5-8.5 [facility] ([facility]) Immature Granulocyte % 0.3 % 0-3.0 [facility] ([facility]) Lymph # 1.6 10 1.5-5.0 [facility] ([facility]) Eos # 0.0 10 0.0-0.5 [facility] ([facility]) Isabella # 0.4 10 0.0-0.8 [facility] ([facility]) Baso # 0.0 10 0.0-0.2 [facility] ([facility]) ID Date Data Source [id number] 04/08/2020 12:00:00 AM EST [facility] Name Value Range Interpretation Code Description Data Mitali rce(s) Supporting Document(s) SARS coronavirus 2 RNA [facility] This lab was ordered by [facility] and rep orted by [facility]. Procedure Social History Code Duration Value Status Description Data Source(s ) Smoking 09/20/2020 12:00:00 AM EDT Patient is a former smoker completed Patient is a former smoker [facility] ([facility], [facility]) Vital Signs ID Date Data Source UNK Name Value Range Interpretation Code Description Data Source(s) Body height 75 [in_i] 75 [in_i] [facility] ([facility]) 6'3" Body weight 250.00 [lb_av] 250.00 [lb_av] [facility] T ([facility]) Systolic blood pressure 128 mm[Hg] 128 mm[Hg] M EDENT ([facility]) Diastolic blood pressure 84 mm[Hg] 84 mm[Hg] [facility] ([facility]) Heart rate 72 /min 72 /min [facility]) Body mass index (BMI) [Ratio] 31.2 kg/m2 31.2 k g/m2 [facility] ([facility]) Body weight 113.400 kg 113.400 kg [facility] ([facility]) Body temperature 96.3 [degF] 96.3 [degF] [facility] ([facility]) Respiratory rate 16 /min 16 /min [facility] ( [facility], ) Systolic blood pressure 124 mm[Hg] 124 mm[Hg] M EDENT ([facility], ) Diastolic blood pressure 80 mm[Hg] 80 mm[Hg] [facility] ([facility], ) Heart rate 76 /min 76 /min [facility] ([facility], ) Systolic blood pressure 131 mm[Hg] 131 mm[Hg] [facility]) Body height 75 [in_i] 75 [in_i] [facility] ([facility]) 6'3" Body mass index (BMI) [Ratio] 30.0 kg/m2 30.0 k g/m2 [facility] ([facility]) Respiratory rate 12 /min 12 /min [facility] Oxygen saturation in Arterial blood by Pulse oximetry 98 % 98 % [facility] Body temperature 97.5 [degF] 97.5 [degF] [facility] ([facility], [facility]) Diastolic blood pressure 87 mm[Hg] 87 mm[Hg] [facility] ([facility], [facility]) Heart rate 81 /min 81 /min [facility] ([facility], [facility]) Body weight 240.00 [lb_av] 240.00 [lb_av] MEDEN T ([facility], [facility]) Body weight 245.00 [lb_av] 245.00 [lb_av] MEDEN T ([facility], [facility]) Systolic blood pressure 147 mm[Hg] 147 mm[Hg] M EDENT ([facility], [facility]) Diastolic blood pressure 83 mm[Hg] 83 mm[Hg] [facility] ([facility], [facility]) Heart rate 66 /min 66 /min [facility] ([facility], [facility]) Respiratory rate 13 /min 13 /min [facility] ( [facility]) Oxygen saturation in Arterial blood by Pulse oximetry 99 % 99 % [facility] ([facility]) Body temperature 98.3 [degF] 98.3 [degF] [facility] ([facility]) Body height 75 [in_i] 75 [in_i] [facility] ([facility]) 6'3" Body mass index (BMI) [Ratio] 30.6 kg/m2 30.6 k g/m2 [facility] ([facility]) Body weight 239.12 [lb_av] 239.12 [lb_av] MEDEN T ([facility]) Body height 73.25 [in_i] 73.25 [in_i] [facility] 6'1.25" Heart rate 72 /min 72 /min [facility] Respiratory rate 18 /min 18 /min [facility] ( [facility]) Systolic blood pressure 115 mm[Hg] 115 mm[Hg] M ED[facility] ([facility] Diastolic blood pressure 76 mm[Hg] 76 mm[Hg] [facility] ([facility]) Body mass index (BMI) [Ratio] 31.3 kg/m2 31.3 k g/m2 [facility] ([facility]
--- OUTSIDE RECORDS SUMMARY | 2021-03-06 08:54 | CCD | Continuity of Care Document ---
Author Author Abel SALINAS M.D. Organization Unknown Address [address] [place] [address] Phone [phone] Care Team Providers Care Account Executive Key Accounts Name Role Phone Alvaro Light MD [facility] [phone] Problems Active Problems Provider Date Screening for malignant neoplasm of colon Danny crooks M.D. Onset: 01/15/2021 Social History Type Date Description Comments Sex Unknown ETOH Use Occasionally Tobacco Use Start: Unknown End: Unknown Patient is a former smoker QUIT 10/2020 Allergies and adverse reactions Description No Known Drug Allergies Medications Active Medications SIG Qnty Indications Ordering Provide r Date Azelastine HCL (Nasal) 0.15% Solut ion [place] Two Sprays In Each Nostril Every Morning U nknown Fluticasone Propionate 50mcg/Act Suspension [place] Two Sprays In One Nostril Every Day Unknown Omeprazole 20mg Capsules DR Take One Capsule By Mouth Once Daily Unknown Verapamil HCL 40mg Tablets Susannah Clemons,P.Yung Multiple Vitamin Tablets Unknown Tylenol 325mg Capsules Unknown Immunizations Description No Information Available Vital Signs Date Vital Result Comment 01/15/2021 11:40am Height 75 inches 6'3" Weight 250.00 lb BP Systolic 128 mmHg BP Diastolic 84 mmHg Heart Rate 72 /min BMI (Body Mass Index) 31.2 kg/m2 Weight 113.400 kg Body Temperature 96.3 F Results Description No Information Available Procedures Date Code Description Status 01/15/2021 48027 Office/Outpatient New Low MDM 30 -44 Minutes Completed Medical Devices Description No Information Available Encounters Type Date Location Provider Dx Diagnosis Office Visit 01/15/2021 11:30a Main Office Danny Salinas M.D. K 21.9 Gastro-esophageal reflux disease without esophagitis Assessments Date Code Description Provider 01/15/2021 K21.9 Gastroesophageal reflux disease Danny Salinas M.D. Plan of Treatment Future Appointment(s):* 03/06/2021 8:30 am - Danny Salinas M.D. at Main Office 01/15/2021 - Danny Salinas M.D.* K21.9 Gastroesophageal reflux disease* Comments:* 35 yo wm who presents for an egd due to a h/o chronic heartburn/abdominal burning for 4 yrs. He has stopped smoking for 4 months. His symptoms are all improved on omeprazole 20 mgs po qam. No weight loss, or dysphagia.Plan:1. Egd + biopsies.2. Informed consent. Functional Status Description No Information Available Mental Status Description No Information Available Referrals Description No Information Available
--- OUTSIDE RECORDS SUMMARY | 2021-03-06 08:54 | CCD | Continuity of Care Document ---
Author Author Abel SALINAS M.D. Organization Unknown Address [address] [place] [id number] Phone [phone] Care Team Providers Care Pc Maintenance Technician Name Role Phone Alvaro Light MD [facility] [phone] Problems Active Problems Provider Date Screening for [...] Date Azelastine HCL (Nasal) 0.15% Solut ion [place] Two Sprays In Each Nostril Every Morning U nknown Fluticasone Propionate 50mcg/Act Suspension [place] Two Sprays In One Nostril Every Day Unknown Omeprazole 20mg Capsules DR Take One Capsule By Mouth Once Daily Unknown Verapamil HCL 40mg Tablets Susannah ClemonsP.Yung Multiple Vitamin Tablets Unknown Tylenol 325mg Capsules Unknown Immunizations Description No Information Available Vital Signs Date Vital Result Comment 01/15/2021 11:40am Height 75 inches 6'3" Weight 250.00 lb BP Systolic 128 mmHg BP Diastolic 84 mmHg Heart Rate 72 /min BMI (Body Mass Index) 31.2 kg/m2 Weight 113.400 kg Body Temperature 96.3 F Results Description No Information Available Procedures Description No Information Available Medical Devices Description No Information Available Encounters Description No Information Available Assessments Date Code Description Provider 01/15/2021 K21.9 [...]
[2021-03-06] MEDS ORDERED: fentaNYL 100 MCG/2 ML INJECTION (J3010) As Ordered ONE (09:53)
[2021-03-06] MEDS ORDERED: propofoL 200 MG/20 ML VIAL As Ordered ONE ×2 (09:54→10:58)
[2021-03-06] MEDS ORDERED: LIDOCAINE 2% 100MG/5ML SDV (FOR ANES.) As Ordered ONE (09:54)
--- NOTE | 2021-03-06 11:04 | ROOR ---
Patient Name: Abel Angel Procedure Date: 03/06/2021 10:41 AM Date of : 1985 Age: 35 Room: [facility] Gender: Male Note Status: Finalized Procedure: Upper Endoscopy + Biopsies Indications: Epigastric abdominal pain, Heartburn, Abdominal bloating Providers: Danny Salinas MD Referring MD: Alvaro Light MD Requesting Provider: Medicines: Monitored Anesthesia Care Complications: No immediate complications. Procedure: Pre-Anesthesia Assessment: - The heart rate, respiratory rate, oxygen saturations, blood pressure, adequacy of pulmonary ventilation, and response to care were monitored throughout the procedure. The Endoscope was introduced through the mouth, and advanced to the second part of duodenum. The upper GI endoscopy was accomplished without difficulty. The patient tolerated the procedure well. Findings: The Z-line was regular and was found 40 cm from the incisors. Multiple biopsies were obtained with cold forceps for evaluation to rule out Richards's Esophagus randomly at the gastroesophageal junction. No other significant abnormalities were identified in a careful examination of the stomach. Biopsies were taken with a cold forceps in the gastric antrum for Helicobacter pylori testing. The exam of the duodenum was otherwise normal. Impression: - Z-line regular, 40 cm from the incisors. - Multiple biopsies were obtained at the gastroesophageal junction. - Biopsies were taken with a cold forceps for Helicobacter pylori testing. - The examination was otherwise normal. Recommendation: - Patient has a contact number available for emergencies. The signs and symptoms of potential delayed complications were discussed with the patient. Return to normal activities tomorrow. Written discharge instructions were provided to the patient. - High fiber diet. - Discharge patient to home. - Follow an antireflux regimen. - Continue present medications. - Await pathology results. - Telephone GI clinic for pathology results in 1 week. - Return to referring physician. - The findings and recommendations were discussed with the patient. Procedure Code(s): --- Professional --- 94973, Esophagogastroduodenoscopy, flexible, transoral; with biopsy, single or multiple Diagnosis Code(s): --- Professional --- R10.13, Epigastric pain R12, Heartburn R14.0, Abdominal distension (gaseous) CPT copyright 2019 [employer] [employer]. All rights reserved. The codes documented in this report are preliminary and upon physician coder review may be revised to meet current compliance requirements. Danny Salinas MD Danny Salinas MD 03/06/2021 11:04:26 AM Electronically signed by Danny Salinas MD Number of Addenda: 0 Note Initiated On: 03/06/2021 10:41 AM Estimated Blood Loss: Estimated blood loss: none.
[2021-03-06 11:22] VITALS: BP 119/78
== END 2021-03-06 11:33 | disposition home or self-care (01) ==
LOC: M SDC 08:50
PROVIDERS: ATTEND Internal Medicine Gastroenterology
DX: R10.13 Epigastric pain (principal); R14.0 Abdominal distension (gaseous); G43.909 Migraine, unspecified, not intractable, without status migrainosus; Z79.899 Other long term (current) drug therapy
CPT/HCPCS: 43239; 88305; J3010

== ENCOUNTER → 2022-08-08 | Outpatient (CLI) | payer BC, OTHER ==
[~2022-08-08] MED LIST changes: -NS 1,000 ML IV ONE
[2022-08-08 09:13] LABS: APPEARANCE, URINE CLEAR (CLEAR); BACTERIA, URINE AUTO 1+ (NEGATIVE); BASO % 0.5 % (0.0-1.0); BILIRUBIN, URINE AUTO NEGATIVE (NEGATIVE); BLOOD, URINE BLOOD NEGATIVE (NEGATIVE); COLOR, URINE YELLOW (YELLOW); EOS % 0.7 % (0.0-3.0); GLUCOSE, URINE (UA) AUTO NEGATIVE (NEGATIVE); HEMATOCRIT 45.6 % (42.0-52.0); HEMOGLOBIN 15.5 g/dl (13.5-17.5); KETONE, URINE AUTO NEGATIVE (NEGATIVE); LEUKOCYTE ESTERASE, URINE AUTO NEGATIVE (NEGATIVE); LYMPH # 1.4 10^3/uL (1.5-5.0); LYMPH % 23.1 % (24.0-44.0); MEAN CORPUSCULAR HEMOGLOBIN 28.9 pg (27.0-33.0); MEAN CORPUSCULAR VOLUME 85.1 fl (80.0-96.0); MONO # 0.5 10^3/uL (0.0-0.8); MONO % 7.8 % (2.0-8.0); MUCUS, URINE SMALL (NEGATIVE); NEUTROPHILS % 67.6 % (36.0-66.0); NITRITE, URINE AUTO NEGATIVE (NEGATIVE); PLATELET COUNT, AUTOMATED 207 10^3/uL (150-450); PROTEIN, URINE AUTO NEGATIVE (NEGATIVE); RBC, URINE AUTO 1 /HPF (0-3); RED BLOOD COUNT 5.36 10^6/uL (4.30-6.10); SPECIFIC GRAVITY URINE AUTO 1.019 (1.002-1.035); SQUAMOUS EPITHELIAL CELL UR AU 0 /HPF (0-6); UROBILINOGEN, URINE AUTO 0.2 mg/dL (0.0-2.0); WBC, URINE AUTO 3 /HPF (0-3); WHITE BLOOD COUNT 5.9 10^3/uL (4.0-10.0)
[2022-08-08 09:39] LABS: ALBUMIN 4.1 G/DL (3.2-5.2); ALKALINE PHOSPHATASE 89 U/L (46-116); ALT/SGPT 25 U/L (7.0-40); AST/SGOT 22 U/L (<34); BILIRUBIN,TOTAL 0.8 MG/DL (0.3-1.2); BLOOD UREA NITROGEN 14 MG/DL (9-23); CALCIUM LEVEL 9.2 MG/DL (8.5-10.1); CARBON DIOXIDE LEVEL 28 MMOL/L (20-31); CHLORIDE LEVEL 107 MMOL/L (98-107); CHOLESTEROL LEVEL 165 MG/DL (<200); CHOLESTEROL RISK RATIO 3.08 (<5); CREATININE FOR GFR 1.15 MG/DL (0.70-1.30); GLOMERULAR FILTRATION RATE > 60.0 (>60); GLUCOSE, FASTING 89 MG/DL (60-100); HDL CHOLESTEROL 53.5 MG/DL (>40); LDL CHOLESTEROL 98.5 MG/DL (<100); NON-HDL-C 111.5 MG/DL; POTASSIUM SERUM 4.5 MMOL/L (3.5-5.1); SODIUM LEVEL 140 MMOL/L (136-145); TOTAL PROTEIN 6.9 G/DL (5.7-8.2); TRIGLYCERIDES LEVEL 65 MG/DL (<150)
== END ==
LOC: M LAB 08:49
PROVIDERS: ATTEND Family Medicine
DX: Z00.00 Encounter for general adult medical examination without abnormal findings (principal); Z90.5 Acquired absence of kidney

== ENCOUNTER → 2023-08-03 | Outpatient (CLI) | payer OTHER ==
[2023-08-03 10:39] LABS: APPEARANCE, URINE CLEAR (CLEAR); BACTERIA, URINE AUTO NEGATIVE (NEGATIVE); BILIRUBIN, URINE AUTO NEGATIVE (NEGATIVE); BLOOD, URINE BLOOD NEGATIVE (NEGATIVE); COLOR, URINE YELLOW (YELLOW); GLUCOSE, URINE (UA) AUTO NEGATIVE (NEGATIVE); KETONE, URINE AUTO NEGATIVE (NEGATIVE); LEUKOCYTE ESTERASE, URINE AUTO NEGATIVE (NEGATIVE); NITRITE, URINE AUTO NEGATIVE (NEGATIVE); PROTEIN, URINE AUTO NEGATIVE (NEGATIVE); RBC, URINE AUTO 0 /HPF (0-3); SPECIFIC GRAVITY URINE AUTO 1.015 (1.002-1.035); SQUAMOUS EPITHELIAL CELL UR AU 0 /HPF (0-6); UROBILINOGEN, URINE AUTO 0.2 mg/dL (0.0-2.0); WBC, URINE AUTO 1 /HPF (0-3)
[2023-08-03 10:43] LABS: BASO % 0.4 % (0.0-1.0); EOS % 0.8 % (0.0-3.0); HEMATOCRIT 44.8 % (42.0-52.0); HEMOGLOBIN 15.3 g/dl (13.5-17.5); LYMPH # 1.2 10^3/uL (1.5-5.0); LYMPH % 24.2 % (24.0-44.0); MEAN CORPUSCULAR HEMOGLOBIN 30.1 pg (27.0-33.0); MEAN CORPUSCULAR HGB CONC 34.2 g/dl (32.0-36.5); MONO # 0.3 10^3/uL (0.0-0.8); MONO % 5.9 % (2.0-8.0); NEUTROPHILS # 3.5 10^3/uL (1.5-8.5); NEUTROPHILS % 68.5 % (36.0-66.0); PLATELET COUNT, AUTOMATED 224 10^3/uL (150-450); RED BLOOD COUNT 5.09 10^6/uL (4.30-6.10); WHITE BLOOD COUNT 5.1 10^3/uL (4.0-10.0)
[2023-08-03 11:08] LABS: ALBUMIN 3.9 G/DL (3.2-5.2); ALKALINE PHOSPHATASE 119 U/L (46-116); ALT/SGPT 33 U/L (7.0-40); AST/SGOT 22 U/L (<34); BILIRUBIN,TOTAL 0.5 MG/DL (0.3-1.2); BLOOD UREA NITROGEN 18 MG/DL (9-23); CALCIUM LEVEL 9.1 MG/DL (8.5-10.1); CARBON DIOXIDE LEVEL 29 MMOL/L (20-31); CHLORIDE LEVEL 103 MMOL/L (98-107); CHOLESTEROL LEVEL 165 MG/DL (<200); CHOLESTEROL RISK RATIO 2.45 (<5); CREATININE FOR GFR 1.06 MG/DL (0.70-1.30); GLOMERULAR FILTRATION RATE > 60.0 (>60); GLUCOSE, FASTING 92 MG/DL (60-100); HDL CHOLESTEROL 67.2 MG/DL (>40); LDL CHOLESTEROL 81.2 MG/DL (<100); NON-HDL-C 97.8 MG/DL; POTASSIUM SERUM 4.7 MMOL/L (3.5-5.1); SODIUM LEVEL 136 MMOL/L (136-145); TOTAL PROTEIN 7.6 G/DL (5.7-8.2); TRIGLYCERIDES LEVEL 83 MG/DL (<150)
== END ==
LOC: M LAB 09:42
PROVIDERS: ATTEND Family Medicine
DX: Z00.00 Encounter for general adult medical examination without abnormal findings (principal); Z90.5 Acquired absence of kidney

== ENCOUNTER → 2024-07-30 | Outpatient (CLI) | payer OTHER ==
[2024-07-30 10:44] LABS: APPEARANCE, URINE CLEAR (CLEAR); BACTERIA, URINE AUTO NEGATIVE (NEGATIVE); BILIRUBIN, URINE AUTO NEGATIVE (NEGATIVE); BLOOD, URINE BLOOD NEGATIVE (NEGATIVE); COLOR, URINE STRAW (YELLOW); GLUCOSE, URINE (UA) AUTO NEGATIVE (NEGATIVE); KETONE, URINE AUTO NEGATIVE (NEGATIVE); LEUKOCYTE ESTERASE, URINE AUTO NEGATIVE (NEGATIVE); NITRITE, URINE AUTO NEGATIVE (NEGATIVE); PROTEIN, URINE AUTO NEGATIVE (NEGATIVE); RBC, URINE AUTO 0 /HPF (0-3); SPECIFIC GRAVITY URINE AUTO 1.008 (1.002-1.035); SQUAMOUS EPITHELIAL CELL UR AU 0 /HPF (0-6); UROBILINOGEN, URINE AUTO 0.2 mg/dL (0.0-2.0); WBC, URINE AUTO 0 /HPF (0-3)
[2024-07-30 10:54] LABS: BASO % 0.6 % (0.0-1.0); EOS % 0.6 % (0.0-3.0); HEMATOCRIT 45.5 % (42.0-52.0); HEMOGLOBIN 15.6 g/dl (13.5-17.5); LYMPH # 1.3 10^3/uL (1.5-5.0); LYMPH % 19.4 % (24.0-44.0); MEAN CORPUSCULAR HEMOGLOBIN 29.9 pg (27.0-33.0); MEAN CORPUSCULAR HGB CONC 34.3 g/dl (32.0-36.5); MEAN CORPUSCULAR VOLUME 87.2 fl (80.0-96.0); MONO # 0.5 10^3/uL (0.0-0.8); MONO % 8.1 % (2.0-8.0); NEUTROPHILS # 4.7 10^3/uL (1.5-8.5); PLATELET COUNT, AUTOMATED 190 10^3/uL (150-450); RED BLOOD COUNT 5.22 10^6/uL (4.30-6.10); WHITE BLOOD COUNT 6.6 10^3/uL (4.0-10.0)
[2024-07-30 11:00] LABS: ALBUMIN 4.1 G/DL (3.2-5.2); ALKALINE PHOSPHATASE 87 U/L (40-129); ALT/SGPT 27 U/L (7.0-40); AST/SGOT 27 U/L (<34); BILIRUBIN,TOTAL 0.3 MG/DL (0.3-1.2); BLOOD UREA NITROGEN 14 MG/DL (9-23); CALCIUM LEVEL 9.2 MG/DL (8.5-10.1); CARBON DIOXIDE LEVEL 28 MMOL/L (20-31); CHLORIDE LEVEL 107 MMOL/L (98-107); CHOLESTEROL LEVEL 173 MG/DL (<200); CHOLESTEROL RISK RATIO 2.88 (<5); CREATININE FOR GFR 1.02 MG/DL (0.70-1.30); GLOMERULAR FILTRATION RATE > 60.0 (>60); GLUCOSE, FASTING 97 MG/DL (60-100); HDL CHOLESTEROL 59.9 MG/DL (>40); LDL CHOLESTEROL 93.7 MG/DL (<100); NON-HDL-C 113.1 MG/DL; POTASSIUM SERUM 4.6 MMOL/L (3.5-5.1); SODIUM LEVEL 141 MMOL/L (136-145); TOTAL PROTEIN 7.4 G/DL (5.7-8.2); TRIGLYCERIDES LEVEL 97 MG/DL (<150)
== END ==
LOC: M PLALAB 07:19
PROVIDERS: ATTEND Family Medicine
DX: Z00.00 Encounter for general adult medical examination without abnormal findings (principal); Z90.5 Acquired absence of kidney

== ENCOUNTER → 2024-08-01 | Outpatient (REF) | payer OTHER | LOC: M LAB REF 14:39 | PROVIDERS: ATTEND Physician Assistant | DX: J02.9 Acute pharyngitis, unspecified (principal) ==